=== PATIENT | female | born 1995 | race African-American/Black ===

== ENCOUNTER 2018-10-24 22:08 | Emergency (ER) | payer OTHER ==
[2018-10-24 22:17] VITALS: BP 117/74; PULSE 80; TEMP 98; BMI 28.3
--- NOTE | 2018-10-24 23:11 | PDOC ---
History of Present Illness - General Chief Complaint: Injury Stated Complaint: 16 WKS /FALL Time Seen by Provider: 10/24/18 22:39 History Source: Patient Exam Limitations: No Limitations Past History - Past Medical History Allergies/Adverse Reactions: Allergies Allergy/AdvReac Type Severity Reaction Status Date / Time No Known Allergies Allergy Verified 10/24/18 22:16 Home Medications: Ambulatory Orders No Home Medications 0 dose .ROUTE UTDICT 11/16/13 Clotrimazole/Betamet Diprop [Lotrisone Cream] 1 applic TP TID #1 tube 05/06/14 Cephalexin Monohydrate [Keflex -] 500 mg PO BID #20 capsule 10/25/18 COPD: No - Immunization History Immunization Up to Date: Yes - Suicide/Smoking/Psychosocial Hx Smoking History: Unknown if ever smoked Have you smoked in the past 12 months: No Number of Cigarettes Smoked Daily: 0 Cigars Per Day: 0 Information on smoking cessation initiated: No Hx Alcohol Use: No Drug/Substance Use Hx: No Substance Use Type: None *Physical Exam - Vital Signs Last Vital Signs Temp Pulse Resp BP Pulse Ox 98.0 F 80 16 117/74 100 10/24/18 22:16 10/24/18 22:16 10/24/18 22:16 10/24/18 22:16 10/24/18 22:16 Medical Decision Making - Medical Decision Making 10/24/18 23:19 Refuses the pelvic exam despite speaking on the benefits and risks associated with the exam *DC/Admit/Observation/Transfer Diagnosis at time of Disposition: UTI (urinary tract infection) Qualifiers: Urinary tract infection type: site unspecified Hematuria presence: without hematuria Qualified Code(s): N39.0 - Urinary tract infection, site not specified - Discharge Dispostion Disposition: HOME Decision to Admit order: No - Prescriptions Prescriptions: Cephalexin Monohydrate [Keflex -] 500 mg PO BID #20 capsule - Referrals Referrals: Karl Craig MD [Primary Care Provider] - Debbie De León [Non Staff, Medical] - - Patient Instructions Printed Discharge Instructions: DI for Urinary Tract Infection (UTI), DI for -- Discomforts and Remedies, Diet - Post Discharge Activity Forms/Work/School Notes: Back to Work
--- NOTE | 2018-10-25 01:02 | PDOC ---
Documentation entered by Leia Doyle SCRIBE, acting as scribe for Preeti Escalona DO. Preeti Escalona DO: This documentation has been prepared by the Vivek robles Nirvannie, SCRIBE, under my direction and personally reviewed by me in its entirety. I confirm that the documentation accurately reflects all work, treatment, procedures, and medical decision making performed by me. Attending Attestation - Resident Resident Name: Ryan Nava - ED Attending Attestation I have performed the following: I have examined & evaluated the patient, The case was reviewed & discussed with the resident, I agree w/resident's findings & plan - HPI HPI: 10/24/18 23:23 The patient is a 23 year old female A2, with no significant past medical history, who presents to the emergency department s/p mechanical slip and fall onto her abdomen at 7pm (approx 4 hours prior to arrival). While in the ED, patient endorses mild left sided abdominal discomfort. She denies any vaginal bleeding. She denies recent fevers, chills, headache or dizziness. She denies recent nausea, vomit, diarrhea or constipation. She denies recent dysuria, frequency, urgency or hematuria. She denies recent chest pain or shortness of breath. Allergies: NKDA Primary Care Physician: Dr. Craig - Physicial Exam PE: 10/24/18 23:23 Agree with resident exam. - Medical Decision Making 10/25/18 00:57 23 yo gravid female with llq pain s/p fall US [id number] 10/25/18 00:58 EXAM: Obstetric ultrasound the second trimester HISTORY: Patient fell COMPARISON: None. FINDINGS There is a single live intrauterine gestation with measurements corresponding to 17 weeks and 6 days. heart rate is 148 bpm. movement is detected. Anterior placenta. Please note that on some views the placenta looks like it covers the cervical os.. Follow-up focused ultrasound recommended to exclude placenta previa. Cervical length is 5 cm and closed Findings and recommendations discussed with Dr. ANDRES DONALDSON EXAM: ABDOMEN US -LIMITED HISTORY: Rule out fluid status post fall COMPARISON: None. FINDINGS: No abdominal free fluid is noted. Read by: Last Sosa MD 10/25/18 01:01 Patient is currently pain-free Plan for discharge with prompt T[employer]E [employer] follow-up Patient given a copy of her results
[2018-10-25 01:09] LABS: EPI CELLS 4.1 /HPF (0-5/HPF); PH,URINE 7.5 (5.0-8.0); URINE APPEARANCE CLEAR; URINE BACTERIA 231.3 /hpf (NEGATIVE); URINE BILIRUBIN NEGATIVE (NEGATIVE); URINE CASTS 1 /lpf (0-8); URINE COLOR YELLOW; URINE GLUCOSE (UA) NEGATIVE (NEGATIVE); URINE KETONE NEGATIVE (NEGATIVE); URINE LEUK ESTERASE 2+ (NEGATIVE); URINE NITRITE NEGATIVE (NEGATIVE); URINE PROTEIN NEGATIVE (NEGATIVE); URINE RBC 0 /hpf (0-4); URINE UROBILINOGEN 0.2 mg/dL (0.2-1.0); URINE WBC 2 /hpf (0-5)
[2018-10-25] MEDS ORDERED: CEPHALEXIN MONOHYDRATE 500 MG CAPSULE (UD) PO ONE (01:25)
[2018-10-25] MEDS ORDERED: CEPHALEXIN MONOHYDRATE 500 MG CAPSULE (UD) ONE ×2 (01:28→01:39)
== END 2018-10-25 01:36 | disposition home or self-care (01) ==
LOC: JER 22:08
DX: O26.892 Other specified pregnancy related conditions, second trimester (principal); O23.32 Infections of other parts of urinary tract in pregnancy, second trimester; Z3A.17 17 weeks gestation of pregnancy; W19.XXXA Unspecified fall, initial encounter; Y93.89 Activity, other specified; Y92.89 Other specified places as the place of occurrence of the external cause; Y99.8 Other external cause status
CPT/HCPCS: 76705-TC; 76801-TC; 81003; 87086; 99282-25

== ENCOUNTER 2021-05-31 19:49 | Emergency (ER) | payer OTHER ==
[2021-05-31 20:08] VITALS: BP 95/69; PULSE 54; TEMP 97.8; BMI 27.8
[2021-05-31] MEDS ORDERED: IBUPROFEN 600 MG TABLET (FP) PO ONE ×2 (22:23→22:32)
[2021-05-31] MEDS ORDERED: LIDOCAINE 5% TOPICAL PATCH TP ONE (22:23)
[2021-05-31] MEDS ORDERED: LIDOCAINE 5% TOPICAL PATCH ONE (22:33)
[2021-06-01] MEDS ORDERED: LIDOCAINE PATCH REMOVAL MC SCH (11:00)
== END 2021-05-31 23:15 | disposition home or self-care (01) ==
LOC: JER 19:49 → JERFT 19:49 → JER 23:15
DX: M54.50 Low back pain, unspecified (principal)
CPT/HCPCS: 99283-25

== ENCOUNTER 2021-06-13 18:43 | Emergency (ER) | payer OTHER ==
[2021-06-13 18:57] VITALS: BP 119/76; PULSE 72; TEMP 97.9; BMI 27.4
[2021-06-13] MEDS ORDERED: IBUPROFEN 600 MG TABLET (FP) PO ONE ×2 (19:18→19:40)
== END 2021-06-13 20:08 | disposition home or self-care (01) ==
LOC: JERFT 18:43 → JER 18:43 → JERFT 20:08
DX: M79.641 Pain in right hand (principal); W01.0XXA Fall on same level from slipping, tripping and stumbling without subsequent striking against object, initial encounter; Y93.51 Activity, roller skating (inline) and skateboarding
CPT/HCPCS: 73110-TC-RT-FY; 73130-TC-RT-FY; 99283-25

== ENCOUNTER 2021-06-14 19:33 | Emergency (ER) | payer OTHER ==
[2021-06-14 20:02] VITALS: BP 119/71; PULSE 77; TEMP 98.6; BMI 27.4
[2021-06-16 11:07] LABS: SARS-CoV-2 NAA Not Detected (Not Detected)
== END 2021-06-14 21:49 | disposition home or self-care (01) ==
LOC: JER 19:33
DX: J06.9 Acute upper respiratory infection, unspecified (principal); Z20.822 Contact with and (suspected) exposure to COVID-19
CPT/HCPCS: 87804; 87807; 99283-25; C9803; U0003; U0005

== ENCOUNTER 2022-08-04 21:35 | Emergency (ER) | payer OTHER ==
[2022-08-04 21:41] VITALS: BP 129/85; PULSE 60; RESP 19; TEMP 98.7; BMI 26.9
[2022-08-04] MEDS ORDERED: KETOROLAC TROMETHAMINE 30 MG/1 ML VIAL IM ONE (22:11)
[2022-08-04] MEDS ORDERED: KETOROLAC TROMETHAMINE 30 MG/1 ML VIAL ONE (22:13)
== END 2022-08-04 22:43 | disposition home or self-care (01) ==
LOC: JERFT 21:35 → JER 21:35 → JERFT 22:43
PROC: 3E023GC Introduction of Other Therapeutic Substance into Muscle, Percutaneous Approach (ICD-10-PCS; principal; 2022-08-04)
DX: S40.021A Contusion of right upper arm, initial encounter (principal); W01.0XXA Fall on same level from slipping, tripping and stumbling without subsequent striking against object, initial encounter
CPT/HCPCS: 99284-25

== ENCOUNTER 2022-09-27 20:41 | Emergency (ER) | payer OTHER ==
[2022-09-27 20:45] VITALS: BP 118/69; PULSE 79; RESP 18; TEMP 98.5; BMI 26.2
== END 2022-09-27 21:42 | disposition home or self-care (01) ==
LOC: JERFT 20:41
DX: J02.0 Streptococcal pharyngitis (principal); H10.31 Unspecified acute conjunctivitis, right eye; R07.0 Pain in throat; Z20.822 Contact with and (suspected) exposure to COVID-19
CPT/HCPCS: 0241U-QW; 99283-25

== ENCOUNTER 2022-10-20 21:08 | Emergency (ER) | payer OTHER ==
[2022-10-20 21:25] VITALS: BP 105/73; PULSE 70; RESP 18; TEMP 98.9; BMI 25.7
[2022-10-20] MEDS ORDERED: FLUCONAZOLE 150 MG TABLET PO ONE ×2 (22:25→22:28)
== END 2022-10-20 22:34 | disposition home or self-care (01) ==
LOC: JERFT 21:08 → JER 21:08 → JERFT 22:34
DX: B37.31 Acute candidiasis of vulva and vagina (principal)
CPT/HCPCS: 99283-25